=== PATIENT | female | born 1980 | race Caucasian/White ===

== ENCOUNTER → 2019-05-14 11:20 | Outpatient (CLI) | payer OTHER, SELFPAY ==
--- NOTE | 2019-05-14 | DI.RAD.S_ITS ---
PROCEDURE: XR TOE RT MIN 2V INDICATIONS: RT 5TH TOE PAIN/SWELLING TECHNIQUE: 3 views of the right toe(s) acquired. COMPARISON: None. FINDINGS: Bones: No fractures or dislocations. No suspicious bony lesions. Mild first MTP degeneration. Soft tissues: No suspicious soft tissue densities. IMPRESSION: No fracture. If the patient's symptoms do not improve recommend followup radiographs in 10 days to assess for healing sclerosis/occult injury. Dictated by: Serg Chu M.D. on 05/14/2019 at 15:00 Approved by: Serg Chu M.D. on 05/14/2019 at 15:03
== END ==
PROVIDERS: PCP Family Medicine; Visit Provider Family Medicine
DX: M79.676 Pain in unspecified toe(s) (principal)
CPT/HCPCS: 73660

== ENCOUNTER → 2020-04-11 09:41 | Outpatient (CLI) | payer OTHER, SELFPAY ==
[2020-04-12 08:47] LABS: COVID19 Sendout Not Detected (Not Detect)
== END ==
PROVIDERS: PCP Family Medicine; Visit Provider Physician Assistant
DX: Z01.812 Encounter for preprocedural laboratory examination (principal)
CPT/HCPCS: 87635

== ENCOUNTER 2020-04-14 07:59 | Day surgery (SDC) | payer OTHER, SELFPAY ==
[2020-04-08 10:37] VITALS: BMI 24.7
[2020-04-14] VITALS (7 sets, daily range): BP systolic 116–141; BP diastolic 70–87; PULSE 70–97; RESP 8–18; TEMP 35.9–37.1; O2SAT 96–99; BMI 24.7
[2020-04-14] MEDS: LACTATED RINGERS 1,000 ML 100 ML IV (08:22)
[2020-04-14] MEDS: metroNIDAZOLE 500 MG/100 ML PIGGYBACK 100 MG IV (08:44)
--- NOTE | 2020-04-14 08:45 | PM.PREOP ---
Pre-operative Note COVID-19 COVID-19 status: Negative Result date/Date tested (Pos, Neg/Pending): 04/11/20 Interval Note History & Physical reviewed/Exam performed by Physician: Yes Changes to H&P: No
[2020-04-14] MEDS: CEFAZOLIN 2 GM/100 ML FROZ.PIGGY IV (09:04)
--- NOTE | 2020-04-14 09:17 | SUR.OPER ---
Prone on padded OR bed, head in foam head support, gel chest rolls, gel pad under knees, pillow under lower legs, toes free of pressure, arms secured on padded arm boards at <90 degrees abduction. Safety belt at thigh.
--- NOTE | 2020-04-14 09:35 | PM.OP.1 ---
Operative Date/Time/Diagnoses Date of procedure: 04/14/20 Time of procedure: 09:36 Pre-op diagnosis: Hemorrhoids Post-op diagnosis: same (right posterior grade 3 internal hemorrhoid and moderate external hemorrhoid) Procedure & Clinicians Procedure: Right posterior column hemorrhoidectomy including internal and external hemorrhoid Same procedure as scheduled: Yes Indications: Symptomatic hemorrhoids for many years, recent thrombosed external hemorrhoid Surgeon: Griselda Marinelli Click Yes if Unassisted: Yes Anesthesia Type: General Operative Notes Findings: Swollen internal and external hemorrhoids and right posterior column Specimen(s): none sent Estimated Blood Loss (mL): 1 Procedure in detail: The patient was brought into the OR. Sequential compression devices were placed on both legs and turned on. Appropriate perioperative antibiotics were given. General anesthesia was induced and the patient was intubated. The patient was turned prone onto the OR table. All bony prominences were padded. The buttocks were taped apart. The perianal area was prepped and draped in sterile fashion with betadine prep. Surgical timeout was conducted. 0.25% Marcaine with epi was used to perform a four quadrant anal block using 5mL per quadrant for a total of 20mL. On external exam there was a moderate right posterior external hemorrhoid. On internal exam, a large internal hemorrhoid was seen at the same location. The [right posterior] internal hemorrhoid was grasped and divided at its base with Thunderbeats dissector. Dissection included the internal and external aspects of the hemorrhoid, avoiding any contact with the sphincter muscles. [20mL of Exparel was used to inject the anoderm and anal canal circumferentially 2-3mL per cm. ] A large Gelfoam was then coated and rolled with Dibucaine and placed in the anal canal. A thick layer of Dibucaine was used to coat the anoderm. A stack of 4x4 gauze was then used to cover the anal opening and secured in place with medipore tape. The patient was transferred onto her hospital bed into supine position. She was then awakened from anesthesia and extubated. Needle, sponge, and instrument counts were correct x 2. The patient was transferred to the PACU in stable condition. Complications: none Post-operative Condition: stable Disposition: PACU
--- NOTE | 2020-04-14 09:44 | SUR.OPER ---
SURGIFOAM WITH DIBUCAINE FOR DRESSING
[2020-04-14] MEDS: BUPIVACAINE 0.25% W/ EPI 30 ML VIAL INJ (09:48)
[2020-04-14] MEDS: BUPIVACAINE LIPOSOME 266 MG/20 ML VIAL INJ (09:48)
[2020-04-14] MEDS: DIBUCAINE 1% OINT 28 GM 1 APPLIC TOP (09:49)
== END 2020-04-14 10:30 | disposition home or self-care (01) ==
PROVIDERS: PCP Family Medicine; Referring Provider Surgery; Visit Provider Surgery
PROC: (CPT 46260; principal; 2020-04-14 08:45)
DX: K64.2 Third degree hemorrhoids (principal); K64.4 Residual hemorrhoidal skin tags
CPT/HCPCS: 46260; C9290; J0690; J1100; J2405; J2704; J3010

== ENCOUNTER → 2020-12-30 11:21 | Outpatient (CLI) | payer OTHER, SELFPAY ==
[2020-12-30] MEDS: COVID-19 VACC #1, MRNA(MOD) 100 MCG/0.5 ML VIAL IM (11:27)
== END ==
PROVIDERS: PCP Family Medicine; Visit Provider Internal Medicine
DX: Z23 Encounter for immunization (principal)
CPT/HCPCS: 0011A; 91301

== ENCOUNTER → 2021-01-27 11:10 | Outpatient (CLI) | payer OTHER, SELFPAY ==
[2021-01-27] MEDS: COVID-19 VACC #2, MRNA(MOD) 100 MCG/0.5 ML VIAL IM (11:17)
== END ==
PROVIDERS: PCP Family Medicine; Visit Provider Internal Medicine
DX: Z23 Encounter for immunization (principal)
CPT/HCPCS: 0012A; 91301

== ENCOUNTER → 2021-08-17 17:09 | Outpatient (CLI) | payer OTHER, SELFPAY ==
--- NOTE | 2021-08-17 | DI.MG.S_ITS ---
BILATERAL DIGITAL SCREENING MAMMOGRAM 3D/2D WITH CAD: 08/17/2021 CLINICAL: Routine screening. Comparison is made to exams dated: 04/22/2012 mammogram and 04/22/2012 [facility]. The tissue of both breasts is heterogeneously dense. This may lower the sensitivity of mammography. Current study was also evaluated with a Computer Aided Detection (CAD) system. No significant masses, calcifications, or other findings are seen in either breast. There has been no significant interval change. IMPRESSION: NEGATIVE There is no mammographic evidence of malignancy. A 1 year screening mammogram is recommended. This exam was interpreted at Station ID: [id number]. NOTE: For mammograms, a report in lay terms will be sent to the patient. Approximately 15% of breast malignancies will not be visualized mammographically. In the management of a palpable breast mass, a negative mammogram must not discourage biopsy of a clinically suspicious lesion. Electronically Signed By: Ezequiel constantino/sandra:08/18/2021 07:30:41 letter sent: Normal Exam ACR BI-RADS Category 1: Negative 3341F
== END ==
PROVIDERS: PCP Family Medicine; Referring Provider Family Medicine; Visit Provider Family Medicine
DX: Z12.31 Encounter for screening mammogram for malignant neoplasm of breast (principal)
CPT/HCPCS: 77063; 77067

== ENCOUNTER → 2022-10-23 09:52 | Outpatient (CLI) | payer OTHER, SELFPAY ==
--- NOTE | 2022-10-23 | DI.MG.S_ITS ---
BILATERAL DIGITAL SCREENING MAMMOGRAM 3D/2D WITH CAD: 10/23/2022 CLINICAL: Routine screening. Comparison is made to exams dated: 08/17/2021 mammogram and 04/22/2012 mammogram - [facility]. Both breasts are heterogeneously dense, which may obscure small masses (category c / 51-75% glandular tissue). Current study was also evaluated with a Computer Aided Detection (CAD) system. No significant masses, calcifications, or other findings are seen in either breast. There has been no significant interval change. IMPRESSION: NEGATIVE There is no mammographic evidence of malignancy. A 1 year screening mammogram is recommended. Based on the Tyrer Cuzick model (a risk assessment model) the patient's lifetime risk is 13.0% and her 10 year risk is 2.2%. According to the ACR, ACS, and NCCN guidelines, an annual breast MRI exam along with mammogram is recommended if the patient's lifetime risk is 20% or greater. This exam was interpreted at Station ID: [id number]. NOTE: For mammograms, a report in lay terms will be sent to the patient. Approximately 15% of breast malignancies will not be visualized mammographically. In the management of a palpable breast mass, a negative mammogram must not discourage biopsy of a clinically suspicious lesion. Electronically Signed By: Ezequiel constantino/sandra:10/23/2022 14:41:41 letter sent: Normal Exam ACR BI-RADS Category 1: Negative 3341F
== END ==
PROVIDERS: PCP Family Medicine; Referring Provider Family Medicine; Visit Provider Family Medicine
DX: Z12.31 Encounter for screening mammogram for malignant neoplasm of breast (principal)
CPT/HCPCS: 77063; 77067

== ENCOUNTER → 2023-10-29 15:01 | Outpatient (CLI) | payer OTHER, SELFPAY ==
--- NOTE | 2023-10-29 | DI.MG.S_ITS ---
BILATERAL DIGITAL SCREENING MAMMOGRAM 3D/2D WITH CAD: 10/29/2023 CLINICAL: Routine screening. Comparison is made to exams dated: 10/23/2022 mammogram, 08/17/2021 mammogram, and 04/22/2012 mammogram - [facility]. Both breasts are heterogeneously dense, which may obscure small masses (category c / 51-75% glandular tissue). Current study was also evaluated with a Computer Aided Detection (CAD) system. No significant masses, calcifications, or other findings are seen in either breast. There has been no significant interval change. IMPRESSION: NEGATIVE There is no mammographic evidence of malignancy. A 1 year screening mammogram is recommended. Based on the Tyrer Cuzick model (a risk assessment model) the patient's lifetime risk is 13.0% and her 10 year risk is 2.4%. According to the ACR, ACS, and NCCN guidelines, an annual breast MRI exam along with mammogram is recommended if the patient's lifetime risk is 20% or greater. This exam was interpreted at Station ID: [id number]. NOTE: For mammograms, a report in lay terms will be sent to the patient. Approximately 15% of breast malignancies will not be visualized mammographically. In the management of a palpable breast mass, a negative mammogram must not discourage biopsy of a clinically suspicious lesion. Electronically Signed By: Ezequiel constantino/sandra:10/30/2023 08:33:26 letter sent: Normal Exam ACR BI-RADS Category 1: Negative 3341F
== END ==
PROVIDERS: PCP Family Medicine; Referring Provider Family Medicine; Visit Provider Family Medicine
DX: Z12.31 Encounter for screening mammogram for malignant neoplasm of breast (principal); R92.333 Mammographic heterogeneous density, bilateral breasts
CPT/HCPCS: 77063; 77067

== ENCOUNTER 2023-11-06 09:32 | Day surgery (SDC) | payer OTHER, SELFPAY ==
--- NOTE | 2023-11-06 | PATH_ITS ---
[facility] Accession Number: [id number] No. of containers..01 Tissue . 01 Material submitted: . colon - SIGMOID . 01 Diagnosis: Sigmoid Colon, Polyp: Hyperplastic polyp. MRV 11/09/2023 1357 Local . 01 Electronically signed: . Andreina Whitman MD, Pathologist NPI- [id number] . 01 Gross description: . SIGMOID: Received in formalin are 2 fragment(s) of spencer, soft tissue measuring 0.2 x 0.2 x 0.2 cm to 0.3 x 0.2 x 0.2 cm submitted entirely in 1 cassette(s) /CLARA 11/07/2023 1836 Local . 01 Pathologist provided ICD-10: K63.5 . 01 CPT . 854842 Specimen Comment: A courtesy copy of this report has been sent to [phone] Performed at: 01 [facility] [address] [place] [address], [place], [place] [id number] MD oJs Lowery MD Phone: [phone]
[2023-11-06 10:47] VITALS: BP 145/97; PULSE 75; RESP 12; TEMP 36.3; O2SAT 100
[2023-11-06] MEDS: LACTATED RINGERS 1,000 ML 42 ML IV (10:52)
--- NOTE | 2023-11-06 11:07 | PM.HP.1 ---
History of Present Illness History of Present Illness Date Patient Seen: 11/06/23 Time Patient Seen: 11:07 Chief complaint: Colonoscopy Narrative: 43F here for screening colonoscopy. No family hx of colon cancer. No abdominal concerns currently. PFSH Medical History Hemorrhoids Surgical History Hx of tonsillectomy Family History Father Hypertension Son Diabetes mellitus Social History marital status: household members: spouse and children occupational status: employed Smoking Status: Never smoker alcohol intake: current substance use type: does not use Meds Home Medications and Allergies Home Medications Medication Instructions Recorded Confirmed Type multivitamin 1 cap PO DAILY 03/18/20 11/06/23 History sodium,potassium,mag sulfates 17.5 See Rx Instructions PO .COMPLEX 09/24/23 Rx gram-3.13 gram-1.6 gram oral soln #354 mL (Suprep Bowel Prep Kit) Allergies Allergy/AdvReac Type Severity Reaction Status Date / Time copper AdvReac Unknown itchy, Verified 11/06/23 10:43 weepy skin Exam Vital Signs (past 8 hours): - 11/06/23 10:47 Temperature 97.4 F L Pulse Rate 75 Respiratory Rate 12 Blood Pressure 145/97 H Pulse Oximetry 100 Oxygen Delivery Method Room Air Oxygen Delivery Method Room Air Narrative Exam Narrative: General adult woman alert oriented no acute distress Chest nonlabored respiration Extremities warm well perfused Assessment & Plan Assessment & Plan narrative: The patient requires colorectal screening and colonoscopy is recommended. Technical details were discussed. Risks, benefits, alternatives explained. Risks including but not limited to myocardial infarction, aspiration, bleeding, pain, missed lesion, incomplete examination, need for further radiographic studies, colonic perforation, and need for major abdominal surgery were discussed. All questions were answered to their satisfaction, and they are in agreement with this plan.
[2023-11-06 11:35] VITALS: BP 112/78; PULSE 79; RESP 19; O2SAT 97
[2023-11-06 11:40] VITALS: BP 118/79; PULSE 76; RESP 18; O2SAT 97
--- NOTE | 2023-11-06 11:40 | P.OP.COLON_ITS ---
Operative Date/Time/Diagnoses Date of procedure: 11/06/23 Time of procedure: 11:40 Pre-op diagnosis: Colorectal screening Post-op diagnosis: other (Colonic polyp x1) Procedure & Clinicians Study performed: Colonoscopy and polypectomy Same procedure as scheduled: Yes Indications: Colorectal screening Surgeon: Herbie Strauss Procedure Notes Procedure in detail: The history and physical was performed/updated and the patient is ASA class is 1. The procedure was discussed in detail with the patient. Potential risks complications including infection, bleeding, missed diagnosis, perforation, need for surgery, and were explained. Their questions were answered and informed consent was obtained. Patient was brought to the procedure room and placed standard monitoring equipment. The patient's vital signs were monitored continuously throughout the entire procedure. Prior to starting time-out was performed. The patient was placed in the left lateral recumbent position. Procedural sedation was administered by anesthesia. Examination began with a thorough inspection of the perianal area there was no evidence of fissures, fistulae, external hemorrhoids or cutaneous malignancy. The colonoscopy scope was then placed into the anal canal and was advanced to the cecum, which was identified by the ileocecal valve, the appendiceal orifice and the confluence of the taenia. The scope was then slowly withdrawn examining colon thoroughly in all directions, irrigating it of any residual stool. The scope was retroflexed within the rectum The patient tolerated the procedure well. They will be discharged once criteria are met. The prep was of good/excellent quality. The withdrawl time was 7 minutes. FINDINGS * Sigmoid- 3 mm polyp removed with biopsy forceps * Internal hemorrhoids grade 1 Specimen(s): other (Sigmoid polyp) Impression: Colonic polyp x1 Post-procedure Plan for aftercare: Follow-up is dependent on pathology findings Disposition: same day surgery
[2023-11-06 11:45] VITALS: BP 138/96; PULSE 77; RESP 20; O2SAT 99
[2023-11-06 11:50] VITALS: BP 143/99; PULSE 75; RESP 17; O2SAT 98
== END 2023-11-06 12:00 | disposition home or self-care (01) ==
PROVIDERS: PCP Family Medicine; Referring Provider Surgery; Visit Provider Surgery
PROC: 0DJD8ZZ Inspection of Lower Intestinal Tract, Via Natural or Artificial Opening Endoscopic (ICD-10-PCS; CPT 45378; principal; 2023-11-06 11:00)
DX: Z12.11 Encounter for screening for malignant neoplasm of colon (principal); K64.8 Other hemorrhoids; D12.5 Benign neoplasm of sigmoid colon
CPT/HCPCS: 45380; J2704

== ENCOUNTER → 2024-11-06 | Outpatient (CLI) | payer BC, SELFPAY ==
--- NOTE | 2024-11-06 13:58 | DI.MG.S_ITS ---
BILATERAL DIGITAL SCREENING MAMMOGRAM 3D/2D WITH CAD: 11/06/2024 CLINICAL: Routine screening. Comparison is made to exams dated: 10/29/2023 mammogram, 10/23/2022 mammogram, and 08/17/2021 mammogram - [facility]. The breasts are heterogeneously dense, which may obscure small masses (category c / 51-75% glandular tissue). Current study was also evaluated with a Computer Aided Detection (CAD) system. No significant masses, calcifications, or other findings are seen in either breast. There has been no significant interval change. IMPRESSION: NEGATIVE There is no mammographic evidence of malignancy. A 1 year screening mammogram is recommended. Based on the Tyrer Cuzick model (a risk assessment model) the patient's lifetime risk is 13.0% and her 10 year risk is 2.5%. According to the ACR, ACS, and NCCN guidelines, an annual breast MRI exam along with mammogram is recommended if the patient's lifetime risk is 20% or greater. This exam was interpreted at Station ID: [id number]. NOTE: For mammograms, a report in lay terms will be sent to the patient. Approximately 15% of breast malignancies will not be visualized mammographically. In the management of a palpable breast mass, a negative mammogram must not discourage biopsy of a clinically suspicious lesion. Electronically Signed By: Ezequiel constantino/sandra:11/10/2024 12:35:16 letter sent: Normal Exam ACR BI-RADS Category 1: Negative
== END ==
PROVIDERS: PCP Family Medicine; Referring Provider Family Medicine; Visit Provider Family Medicine
DX: Z12.31 Encounter for screening mammogram for malignant neoplasm of breast (principal); R92.333 Mammographic heterogeneous density, bilateral breasts
CPT/HCPCS: 77063; 77067